=== PATIENT | female | born 1930 | race Caucasian/White ===

== ENCOUNTER 2018-02-09 10:19 | Emergency (ER) | payer MEDICARE, BC, OTHER ==
[~2018-02-09] VITALS: Ht 160 cm; Wt 75.8 kg
[~2018-02-09 10:19] MED LIST: ASPIR 8181 M1 PO; ASPIRIN325; AUGMENTIN 875875 MG PO; CALCIUM 500 +1 EAC5 PO; CATAPRES-TTS 10.1 MG; CATAPRES-TTS 10.1 MG TD; CEFTIN 250 MG250 MG PO; CEPHALEXIN 500500 M1 PO; CLARITIN10 M2 PO; CLONIDINE; CLONIDINE0.1 PO; CLOPIDOGREL OR; COMBIVENT INH; DETROL LA4 MG PO; DETROL PO; FERRO-TIME325 MG PO; FISH OIL 1,0001 EAC5 PO; FISH OIL 1,001000 M2 PO; GLUCOSAMINE CH1 EAC7; IRON; K-PHOS PO; KEFLEX500 MG PO; KLOR-CON 1010 MEQ PO; LEVAQUIN 500 M500 M2 PO; LEVOTHYROXINE0.05 MG PO; LIPITOR 10 MG10 M1; LIPITOR 20 MG T20 M1 PO; MUCINEX600 MG PO; MULTIVITAMINS PO; NITROSTAT0.4 MG SL; PLAVIX 75 MG TA75 M1 PO; PLAVIX 75 MG TA75 MG; POLY-VI-SOL WIT50 ML; PREDNISONE 10 M10 M1 PO; REFRESH TEARS15 ML OP; SIMVASTATIN20 MG PO; TRIAMTERENE-HC1 EAC3 PO; UNICOMPLEX M TA1 TA1 PO; VICODIN ES TAB1 EACH PO; VITAMIN D400 UNI1 PO; VITAMIN E400 UNIT PO; ZPAK; [UNRECOGNIZED DRUG - OTHER]
[2018-02-09] MEDS ORDERED: FOSAMAX 70 MG T70 MG PO (10:30)
[2018-02-09] MEDS ORDERED: ALLOPURINOL 10100 M1 PO (10:31)
[2018-02-09] MEDS ORDERED: CLONIDINE0.1 PO (10:31)
[2018-02-09] MEDS ORDERED: CARBAMIDE15 ML OT (10:32)
[2018-02-09] MEDS ORDERED: PLAVIX 75 MG TA75 M1 PO (10:33)
[2018-02-09] MEDS ORDERED: REFRESH TEARS15 ML (10:33)
[2018-02-09 12:10] VITALS: BP 169/77
== END 2018-02-09 12:11 | disposition home or self-care (01) ==
LOC: M.ERS 10:19
DX: S39.013A Strain of muscle, fascia and tendon of pelvis, initial encounter (principal); D86.9 Sarcoidosis, unspecified; I10 Essential (primary) hypertension; K21.9 Gastro-esophageal reflux disease without esophagitis; I25.10 Atherosclerotic heart disease of native coronary artery without angina pectoris; Z86.73 Personal history of transient ischemic attack (TIA), and cerebral infarction without residual deficits; Z85.42 Personal history of malignant neoplasm of other parts of uterus; Z88.8 Allergy status to other drugs, medicaments and biological substances; Z88.2 Allergy status to sulfonamides; Z87.891 Personal history of nicotine dependence; W18.39XA Other fall on same level, initial encounter; Y93.89 Activity, other specified; Y92.89 Other specified places as the place of occurrence of the external cause; Y99.8 Other external cause status

== ENCOUNTER 2018-04-13 11:37 | Inpatient (IN) | payer MEDICARE, BC, OTHER ==
[~2018-04-13] VITALS: Ht 165.1 cm; Wt 78.5 kg
[~2018-04-13 11:37] MED LIST changes: +ALLOPURINOL 10100 M1 PO; +CARBAMIDE15 ML OT; +FOSAMAX 70 MG T70 MG PO; +REFRESH TEARS15 ML
[2018-04-13 11:43] VITALS: BP 111/66
[2018-04-13 12:16] LABS: ABSOLUTE EOSINOPHILS 0.2 thou/uL (0.0-0.7); ABSOLUTE MONOCYTES 0.4 thou/uL (0.0-1.2); BASOPHILS 0.6 %; EOSINOPHILS 3.2 %; HEMATOCRIT 36.1 % (37.0-47.0); HEMOGLOBIN 12.2 gm/dL (12.0-15.0); LYMPHOCYTES 14.6 %; MCH 33.6 pg (26.0-34.0); MCHC 33.6 g/dL (28.0-37.0); MONOCYTES 6.7 %; NUCLEATED RBCS 0 /100WBC; PLATELET COUNT* 114 thou/uL (150-400); POLYS 74.9 %; RBC 3.61 mil/uL (4.20-5.00); RDW-CV 14.9 % (10.5-14.5); WBC 6.6 thou/uL (4.0-11.0)
[2018-04-13 12:34] LABS: PROTIME 9.7 Seconds (9.20-11.50)
[2018-04-13 12:35] LABS: ANION GAP 7 mmol/L (7-16); BUN 46 mg/dL (7-18); CALCIUM 9.1 mg/dL (8.5-10.1); CHLORIDE 105 mmol/L (98-107); CO2 28 mmol/L (21-32); CREATININE 1.3 mg/dL (0.6-1.3); GLUCOSE 96 mg/dL (70-99); POTASSIUM 3.7 mmol/L (3.5-5.1); SODIUM 140 mmol/L (136-145)
[2018-04-13 12:43] LABS: ALBUMIN 3.1 g/dL (3.4-5.0); ALKALINE PHOSPHATASE 172 U/L (46-116); SGOT 21 U/L (15-37); SGPT 19 U/L (30-65); TOTAL BILIRUBIN 0.5 mg/dL (<0.1-1.0); TOTAL PROTEIN 6.6 g/dL (6.4-8.2); TROPONIN-I LEVEL <0.06 ng/mL (<0.06)
[2018-04-13 14:10] VITALS: BP 138/71
--- NOTE | 2018-04-13 16:16 | EKG ---
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: : 1930 Requested By: Leandro Marquis Order Number: [id number] MD: Tal Dai Measurements Intervals [place] Rate: 73 P: 37 [place]: 184 QRS: 12 QRSD: 104 T: 44 QT: 410 QTc: 452 Interpretive Statements Sinus rhythm poor r wave progression Ventricular premature complex Compared to ECG 04/15/2017 16:16:18 Ventricular premature complex(es) now present Electronically Signed On 04-13-2018 16:16:36 CDT by Tal Dai [email or web address] <ELECTRONICALLY SIGNED> By: Tal Dai MD, [facility] 04/13/18 1616 1147 1147 Tal Dai MD, [facility] /EPI
[2018-04-13 20:30] VITALS: BP 149/42
[2018-04-14] VITALS: BP 148/52
[2018-04-14 04:00] VITALS: BP 105/51
[2018-04-14 05:07] LABS: ABSOLUTE EOSINOPHILS 0.4 thou/uL (0.0-0.7); ABSOLUTE MONOCYTES 0.4 thou/uL (0.0-1.2); ABSOLUTE NEUTROPHILS 3.9 thou/uL (1.6-8.1); BASOPHILS 0.6 %; EOSINOPHILS 6.3 %; HEMATOCRIT 34.9 % (37.0-47.0); HEMOGLOBIN 11.8 gm/dL (12.0-15.0); LYMPHOCYTES 17.3 %; MCH 33.5 pg (26.0-34.0); MCHC 33.8 g/dL (28.0-37.0); MCV 99.2 fL (80.0-100.0); MONOCYTES 6.4 %; MPV 9.7 fl. (7.2-11.1); NUCLEATED RBCS 0 /100WBC; PLATELET COUNT* 110 thou/uL (150-400); POLYS 69.4 %; RBC 3.51 mil/uL (4.20-5.00); RDW-CV 14.3 % (10.5-14.5); WBC 5.7 thou/uL (4.0-11.0)
[2018-04-14 05:17] LABS: ALBUMIN 2.6 g/dL (3.4-5.0); CALCIUM 8.4 mg/dL (8.5-10.1); POTASSIUM 3.6 mmol/L (3.5-5.1); TOTAL BILIRUBIN 0.6 mg/dL (<0.1-1.0); TOTAL PROTEIN 5.7 g/dL (6.4-8.2)
[2018-04-14 05:27] LABS: CHOLESTEROL 114 mg/dL (<200); HDL CHOLESTEROL 49 mg/dL (>40); LDL CHOLESTEROL 49 mg/dL (<100); TC:HDL 2.3 Ratio (Not establshd); TRIGLYCERIDE 83 mg/dL (<150); VLDL 17 mg/dL (<40)
[2018-04-14 05:42] LABS: SERUM ASSESSMENT CLEAR
[2018-04-14 08:00] VITALS: BP 126/45
[2018-04-14 12:55] VITALS: BP 186/69
[2018-04-14 16:33] VITALS: BP 116/53
[2018-04-14 20:20] VITALS: BP 151/48
[2018-04-15] VITALS: BP 134/65
[2018-04-15 04:05] VITALS: BP 149/42
[2018-04-15 08:00] VITALS: BP 156/57
[2018-04-15 11:38] VITALS: BP 152/41
[2018-04-15 16:34] VITALS: BP 141/32
[2018-04-15 20:00] VITALS: BP 132/38
[2018-04-16] VITALS: BP 152/67
[2018-04-16 04:00] VITALS: BP 128/69
[2018-04-16 08:00] VITALS: BP 137/40
--- NOTE | 2018-04-16 10:20 | 2DMMODE ---
[place] [address] 2 D/M-MODE ECHOCARDIOGRAM Name: FABBY CROOKS Room: [address] IN .R.#: [id number] Admission: 04/13/18 Attend Phys: Percy Ramirez, Discharge: Date of : [birth year] Date of Service: 04/16/18 1020 Report #: [id number] THIS REPORT FOR: //name// APPROVED REPORT Study performed: 04/13/2018 17:21:08 EXAM: Comprehensive 2D, Doppler, and color-flow Echocardiogram Patient Location: Bedside BSA: 1.83 HR: 66 bpm BP: 138/71 mmHg Other Information Study Quality: Good Indications CVA/TIA Echo Enhancing Agent Indication: Rule out Shunt Agent(s) / Amount(s) Used: Agitated Saline cc 2D Dimensions LVEF(%): 57.66 (>50%) IVSd: 14.32 (7-11mm) LVOT Diam: 19.57 (18-24mm) LVDd: 34.64 mm PWd: 9.14 (7-11mm) Ascending Ao: 37.34 (22-36mm) LVDs: 24.40 (25-40mm) Aortic Root: 29.54 mm Camacho's LVEF: 57.66 % Volumes Left Atrial Volume (Systole) LA ESV Index: 40.00 mL/m2 Aortic Valve AoV Peak Pedro.: 1.56 m/s AO Peak Gr.: 9.79 mmHg LVOT Max P.56 mmHg AO Mean Gr.: 5.77 mmHg LVOT Mean P.56 mmHg LVOT Max V: 0.94 m/s AO V2 VTI: 39.97 cm LVOT Mean V: 0.57 m/s MAXIM (VTI): 1.64 cm2 LVOT V1 VTI: 21.75 cm AI [place]: 3.03 m/s2 [place] [address] 2 D/M-MODE ECHOCARDIOGRAM Name: FABBY CROOKS Room: [address] IN .R.#: [id number] Admission: 04/13/18 Attend Phys: Percy Ramirez, Discharge: Date of : [birth year] Date of Service: 04/16/18 1020 Report #: [id number] AI PHT: 418.48 ms Mitral Valve E/A Ratio: 0.75 MV Decel. Time: 281.78 ms MV E Max Pedro.: 0.75 m/s MV PHT: 81.72 ms MVA (PHT): 2.69 cm2 TDI E/Lateral E': 18.75 E/Medial E': 18.75 Medial E' Pedro.: 0.04 m/s Lateral E' Pedro.: 0.04 m/s Pulmonary Valve PV Peak Pedro.: 0.87 m/s PV Peak Gr.: 2.99 mmHg Tricuspid Valve RAP Estimate: 5.00 mmHg TR Peak Gr.: 44.21 mmHg RVSP: 49.21 mmHg PA Pressure: 49.21 mmHg Left Ventricle The left ventricle is normal size. There is normal LV segmental wall motion. Moderate concentric left ventricular hypertrophy. Left ventricular systolic function is normal. The left ventricular ejection fraction is within the normal range. LVEF is 60-65%. Grade I - abnormal relaxation pattern. Right Ventricle The right ventricle is normal size. The right ventricular systolic function is normal. Atria Left atrium is mildly dilated. Injection of bubbles documented no interatrial shunt. The right atrium size is normal. Aortic Valve Mild aortic valve sclerosis. Mild to moderate aortic regurgitation. There is no aortic valvular stenosis. Mitral Valve There is mitral annular calcification. Mild mitral regurgitation. No evidence of mitral valve stenosis. [place] [address] 2 D/M-MODE ECHOCARDIOGRAM Name: FABBY CROOKS Room: [address] M.R.#: [id number] Admission: 04/13/18 Attend Phys: Percy Ramirez, Discharge: Date of : [birth year] Date of Service: 04/16/18 1020 Report #: [id number] The tricuspid valve is normal in structure. Moderate tricuspid regurgitation. Pulmonic Valve The pulmonary valve is normal in structure. Mild pulmonic regurgitation. Great Vessels The aortic root is normal in size. IVC is normal in size and collapses with >50% inspiration Pericardium There is no pericardial effusion. <Conclusion> The left ventricle is normal size. Moderate concentric left ventricular hypertrophy. Left ventricular systolic function is normal. The left ventricular ejection fraction is within the normal range. LVEF is 60-65%. Grade I - abnormal relaxation pattern. The right ventricle is normal size. Left atrium is mildly dilated. Mild aortic valve sclerosis. Mild to moderate aortic regurgitation. There is no aortic valvular stenosis. There is mitral annular calcification. Mild mitral regurgitation. The tricuspid valve is normal in structure. Moderate tricuspid regurgitation. IVC is normal in size and collapses with >50% inspiration There is no pericardial effusion. There is normal LV segmental wall motion. Injection of bubbles documented no interatrial shunt. <ELECTRONICALLY SIGNED> By: Henrique Marion MD, [facility] 04/16/18 1020 1020 1020 Henrique Marion MD, [facility]ACC /INF
[2018-04-16 11:50] VITALS: BP 125/42
[2018-04-16] MEDS ORDERED: ASPIR 8181 MG PO (13:26)
[2018-04-16 13:32] VITALS: BP 125/42
[2018-04-16 16:33] VITALS: BP 104/44
== END 2018-04-16 17:30 | DRG 65 ==
LOC: M.ERS 11:37 → M.TBA-ER 12:43 → M.2W 12:43
PROVIDERS: Emergency Medicine Emergency Medical Services; ADMIT Internal Medicine
DX: I63.9 Cerebral infarction, unspecified (principal); E44.0 Moderate protein-calorie malnutrition; D86.9 Sarcoidosis, unspecified; I10 Essential (primary) hypertension; K21.9 Gastro-esophageal reflux disease without esophagitis; E03.9 Hypothyroidism, unspecified; I65.22 Occlusion and stenosis of left carotid artery; E78.5 Hyperlipidemia, unspecified; M10.9 Gout, unspecified; M81.0 Age-related osteoporosis without current pathological fracture; I25.10 Atherosclerotic heart disease of native coronary artery without angina pectoris; Z98.890 Other specified postprocedural states; Z88.2 Allergy status to sulfonamides; Z79.01 Long term (current) use of anticoagulants; Z79.82 Long term (current) use of aspirin; Z90.710 Acquired absence of both cervix and uterus; Z79.899 Other long term (current) drug therapy; Z88.8 Allergy status to other drugs, medicaments and biological substances; Z87.891 Personal history of nicotine dependence; Z85.42 Personal history of malignant neoplasm of other parts of uterus

== ENCOUNTER 2018-04-16 16:57 | Inpatient (IN) | payer MEDICARE, BC, OTHER ==
[~2018-04-16] VITALS: Ht 165.1 cm; Wt 72.8 kg
[~2018-04-16 16:57] MED LIST changes: +ASPIR 8181 MG PO
[2018-04-16 18:00] VITALS: BP 126/49
[2018-04-16 20:14] VITALS: BP 114/60
[2018-04-17 04:05] LABS: HEMATOCRIT 35.2 % (37.0-47.0); HEMOGLOBIN 11.9 gm/dL (12.0-15.0); MCH 33.6 pg (26.0-34.0); MCHC 33.8 g/dL (28.0-37.0); MCV 99.3 fL (80.0-100.0); RBC 3.55 mil/uL (4.20-5.00); RDW-CV 14.6 % (10.5-14.5); WBC 5.7 thou/uL (4.0-11.0)
[2018-04-17 04:31] LABS: CALCIUM 9.2 mg/dL (8.5-10.1); CREATININE 1.3 mg/dL (0.6-1.3); POTASSIUM 3.8 mmol/L (3.5-5.1)
[2018-04-17 07:55] VITALS: BP 144/40
[2018-04-17 19:30] VITALS: BP 93/60
[2018-04-18 07:52] VITALS: BP 142/50
[2018-04-18 20:21] VITALS: BP 120/93
[2018-04-19 08:10] VITALS: BP 106/38
[2018-04-19 21:40] VITALS: BP 140/39
[2018-04-20 08:00] VITALS: BP 139/49
[2018-04-20 08:15] VITALS: BP 139/49
[2018-04-20 20:29] VITALS: BP 124/57
[2018-04-21 07:30] VITALS: BP 155/41
[2018-04-21 20:00] VITALS: BP 134/54
[2018-04-22 07:30] VITALS: BP 154/43
[2018-04-22 20:11] VITALS: BP 182/59
[2018-04-23 06:40] VITALS: BP 124/41
[2018-04-23 08:03] VITALS: BP 124/41
[2018-04-23 20:27] VITALS: BP 116/46
[2018-04-24 08:12] VITALS: BP 127/43
[2018-04-24 19:49] VITALS: BP 147/55
[2018-04-25 08:00] VITALS: BP 115/49
[2018-04-25 19:30] VITALS: BP 130/50
[2018-04-26 07:50] VITALS: BP 134/46
[2018-04-26 19:30] VITALS: BP 122/38
[2018-04-27 08:29] VITALS: BP 125/38
[2018-04-27 20:14] VITALS: BP 128/62
[2018-04-28 07:43] VITALS: BP 107/51
[2018-04-28 08:09] VITALS: BP 107/51
[2018-04-28 20:13] VITALS: BP 114/68
[2018-04-28 20:18] VITALS: BP 135/48
[2018-04-29 08:26] VITALS: BP 132/49
[2018-04-29 19:30] VITALS: BP 158/48
[2018-04-30] MEDS ORDERED: ALLOPURINOL 10100 M1 PO (01:01)
[2018-04-30] MEDS ORDERED: ASPIR 8181 MG PO (01:02)
[2018-04-30 01:06] VITALS: BP 158/48
[2018-04-30 08:04] VITALS: BP 121/30
[2018-04-30 09:00] VITALS: BP 121/30
--- NOTE | 2018-05-23 11:20 | H ---
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 She is a right-hand dominant female with sudden onset right hand weakness with previous history of stroke and left carotid endarterectomy. She has deficits in physical and occupational therapy. There have been no significant changes since the preadmission screening. Previous level of function was modified independent to independent with activities of daily living. Current level of function is minimum to minimum assistance of 1-2 depending on therapy, activity and time of day. She also has mild to moderate impairment of comprehension, expression, social interaction, problem solving, memory. She is currently ambulating 20 feet with a front-wheeled walker. Estimated length of stay is 10-12 days with discharge disposition to the home setting where she does live alone, but she does have a daughter that can help with supervision and assistance if needed. PAST MEDICAL HISTORY: Hypertension, coronary artery disease, GERD, previous CVA, anemia, PVD, sarcoidosis, uterine cancer, hypothyroid. PAST SURGICAL HISTORY: Right carotid endarterectomy and hysterectomy. ALLERGIES: LISINOPRIL, SULFA, TRIMETHOPRIM. SOCIAL HISTORY: Previous tobacco, but not currently. No alcohol or illicit drug use. REVIEW OF SYSTEMS: A 14-point review of systems is done and is negative except as mentioned in the HPI, specifically no fever, chest pain, shortness of breath, abdominal pain or distention, change in bowel or change in bladder. PHYSICAL EXAMINATION: GENERAL: Alert, oriented, no apparent distress. VITAL SIGNS: Reviewed and are stable. HEENT: Head atraumatic, normocephalic. Pupils equal, round, reactive. ABDOMEN: Soft, nontender, nondistended. NEUROLOGIC: Cranial nerves 2-12 are grossly intact with no focal neuro deficits. SKIN: Warm and dry. No rashes or lesions noted. MUSCULOSKELETAL: No clubbing, [place] [address] HISTORY AND PHYSICAL Name: FABBY CROOKS Room: [address]#: [id number] Admission: 04/16/18 Attend Phys: Celina Hernandez DO Discharge: 04/30/18 Date of : [birth year] Report #: [id number] ASSESSMENT: Left cerebrovascular accident, left frontal lobe cerebrovascular accident, previous cerebrovascular accident, multiple medical comorbidities requiring acute medical care. PLAN: 1. Admission to inpatient rehabilitation to facilitate safe discharge to the home setting. 2. PT, OT, speech, language, case management, nursing and HIMS to make evaluations and recommendations. 3. HIMS, Dr. Claudio, heart healthy diet. CBC, BMP in the a.m. after diagnosis. MEDICATIONS: Reviewed, reconciled by myself and are available in the MAR. <ELECTRONICALLY SIGNED> By: Celina Hernandez DO 05/23/18 1120 1559 [id number] Hernandez DO /nt
--- NOTE | 2018-05-23 11:20 | PLAN ---
[address] [address] REHAB UNIT PLAN OF CARE Name: FABBY CROOKS Room: [address]#: [id number] Admission: 04/16/18 Attend Phys: Celina Hernandez DO Discharge: 04/30/18 Date of : [birth year] Report #: [id number] THIS REPORT FOR: //name// CC: Henrique Hernandez This is an 87-year-old right-hand dominant female admitted to inpatient rehabilitation to facilitate safe discharge home, status post left CVA and left frontal lobe CVA. Previous level of function was independent to modified independent with activities of daily living. Current level of function is minimum assistance of 1-2 depending on therapy, activity and time of day. Estimated length of stay is 12-14 days with discharge disposition to the home where she lives alone. She does have a daughter that can help with supervision as well as assistance. MEDICAL PROGNOSIS: Good. REHABILITATION PROGNOSIS: Good. Physical therapy will see the patient 60-90 minutes per day, 5 days per week, working on upper and lower body strength, balance, coordination, navigation. Occupational therapy will work with the patient 60-90 minutes per day, 5 days per week, working on upper and lower body strength, balance, coordination, navigation, bathing, dressing, and toileting. Speech and language pathology will work with the patient 30-90 minutes per day working on comprehension, expression, social interaction, problem solving and memory. This is an overall plan of care and will change from time to time. We will team her weekly and make changes to the plan of care as needed. <ELECTRONICALLY SIGNED> By: Celina Hernandez DO 05/23/18 1120 1601 0429Celina Hernandez DO /nt
== END 2018-04-30 15:17 | DRG 66 ==
LOC: M.REH 16:57
PROVIDERS: ADMIT Physical Medicine & Rehabilitation
DX: I63.9 Cerebral infarction, unspecified (principal); I10 Essential (primary) hypertension; I25.10 Atherosclerotic heart disease of native coronary artery without angina pectoris; K21.9 Gastro-esophageal reflux disease without esophagitis; D64.9 Anemia, unspecified; E03.9 Hypothyroidism, unspecified; I73.9 Peripheral vascular disease, unspecified; R53.81 Other malaise; D86.9 Sarcoidosis, unspecified; R07.9 Chest pain, unspecified; Z85.42 Personal history of malignant neoplasm of other parts of uterus; Z90.710 Acquired absence of both cervix and uterus; Z88.2 Allergy status to sulfonamides; Z88.8 Allergy status to other drugs, medicaments and biological substances; Z79.82 Long term (current) use of aspirin; Z79.899 Other long term (current) drug therapy

== ENCOUNTER 2018-05-23 18:54 | Emergency (ER) | payer MEDICARE, BC, OTHER ==
[~2018-05-23] VITALS: Ht 165.1 cm; Wt 77.1 kg
[2018-05-23] MEDS ORDERED: LASIX 20 MG TAB20 MG PO (19:13)
[2018-05-23 19:57] LABS: HEMATOCRIT 31.2 % (37.0-47.0); HEMOGLOBIN 10.5 gm/dL (12.0-15.0); MCH 34.2 pg (26.0-34.0); MCHC 33.7 g/dL (28.0-37.0); MCV 101.3 fL (80.0-100.0); MPV 9.1 fl. (7.2-11.1); NUCLEATED RBCS 0 /100WBC; PLATELET COUNT* 132 thou/uL (150-400); RBC 3.08 mil/uL (4.20-5.00); RDW-CV 15.4 % (10.5-14.5); WBC 6.5 thou/uL (4.0-11.0)
[2018-05-23 20:06] LABS: ANION GAP 9 mmol/L (7-16); BUN 40 mg/dL (7-18); CALCIUM 8.9 mg/dL (8.5-10.1); CHLORIDE 106 mmol/L (98-107); CO2 25 mmol/L (21-32); CREATININE 1.6 mg/dL (0.6-1.3); GLUCOSE 97 mg/dL (70-99); POTASSIUM 4.6 mmol/L (3.5-5.1); SODIUM 140 mmol/L (136-145)
[2018-05-23 20:07] LABS: APTT 25.1 Seconds (25.0-31.3); PROTIME 9.9 Seconds (9.20-11.50)
[2018-05-23 20:09] LABS: URINE BILIRUBIN NEGATIVE (Negative); URINE BLOOD 1+ (Negative); URINE CLARITY CLEAR; URINE COLOR YELLOW; URINE GLUCOSE-RANDOM NEGATIVE (Negative); URINE KETONES NEGATIVE (Negative); URINE NITRITE-REFLEX NEGATIVE (Negative); URINE PROTEIN NEGATIVE (Negative); URINE UROBILINOGEN 0.2 E.U./dl (0.2-1.0)
[2018-05-23 20:11] LABS: URINE LEUKOCYTES-REFLEX 2+ (Negative)
[2018-05-23 20:12] LABS: ALBUMIN 2.8 g/dL (3.4-5.0); ALKALINE PHOSPHATASE 221 U/L (46-116); LIPASE 303 U/L (73-393); SGOT 18 U/L (15-37); SGPT 17 U/L (30-65); TOTAL BILIRUBIN 0.4 mg/dL (<0.1-1.0); TOTAL PROTEIN 6.1 g/dL (6.4-8.2); TROPONIN-I LEVEL <0.06 ng/mL (<0.06)
[2018-05-23 20:21] LABS: BACTERIA-REFLEX None Seen /HPF (None Seen); CASTS None Seen /LPF (None Seen); MUCUS 0-3 Light strn/LPF (None Seen); SQUAMOUS 0-3 Few /LPF (0-3); URINE RBC 0-2 Rare /HPF (0-2); URINE WBC-REFLEX 0-5 Rare /HPF (0-5)
[2018-05-23 20:22] LABS: CRYSTALS None Seen /LPF (None Seen)
[2018-05-23 20:39] LABS: ABSOLUTE EOSINOPHILS 0.3 thou/uL (0.0-0.7); ABSOLUTE LYMPHOCYTES 1.4 thou/uL (0.8-5.3); ABSOLUTE MONOCYTES 0.6 thou/uL (0.0-1.2); ABSOLUTE NEUTROPHILS 4.2 thou/uL (1.6-8.1); ANISOCYTOSIS 1+; MACROCYTES 1+; PLATELET ESTIMATE DECREASED
[2018-05-23 20:40] LABS: POIKILOCYTOSIS Occasional
[2018-05-23 21:47] VITALS: BP 161/46
--- NOTE | 2018-05-24 15:19 | EKG ---
[place] [address] ELECTROCARDIOGRAM REPORT Name: FABBY CROOKS Room: [facility]#: [id number] Admission: 05/23/18 Attend Phys: Discharge: 05/23/18 Date of : [birth year] Report #: [id number] THIS REPORT FOR: //name// [facility] ED Test Date: 2018-05-23 Test Time: 19:38:07 Pat Name: FABBY CROOKS Department: Room: Gender: F [employer] Supervisor: bridgette : 1930 Requested By: Jonathan Webb Order Number: [id number] MD: Henrique Marion Measurements Intervals [place] Rate: 74 P: 58 [place]: 182 QRS: 29 QRSD: 97 T: 61 QT: 409 QTc: 454 Interpretive Statements Sinus rhythm Multiple ventricular premature complexes Anteroseptal infarct, old Compared to ECG 04/13/2018 11:47:12 Myocardial infarct finding now present Electronically Signed On 05-24-2018 15:18:45 CDT by Henrique Marion [email or web address] <ELECTRONICALLY SIGNED> By: Henrique Marion MD, [facility] 05/24/18 151 37 37 eHnrique Marion MD, [facility] /EPI
== END 2018-05-23 21:48 | disposition home or self-care (01) ==
LOC: M.ERS 18:54
PROVIDERS: Family Medicine
DX: Z71.1 Person with feared health complaint in whom no diagnosis is made (principal); I10 Essential (primary) hypertension; K21.9 Gastro-esophageal reflux disease without esophagitis; I25.10 Atherosclerotic heart disease of native coronary artery without angina pectoris; Z86.73 Personal history of transient ischemic attack (TIA), and cerebral infarction without residual deficits; Z85.42 Personal history of malignant neoplasm of other parts of uterus

== ENCOUNTER → 2018-11-23 | Outpatient (CLI) | payer MEDICARE, BC, OTHER ==
[~2018-11-23] MED LIST changes: +LASIX 20 MG TAB20 MG PO
== END ==
LOC: M.ULTRA 15:00
DX: E04.2 Nontoxic multinodular goiter (principal); E21.3 Hyperparathyroidism, unspecified